=== PATIENT | male | born 1980 | race Hispanic/Latino ===

== ENCOUNTER 2017-12-28 11:43 | Emergency (ER) | payer OTHER ==
[2017-12-28 11:56] VITALS: RESP 18
[2017-12-28] MEDS ORDERED: Sodium Chloride 0.9% 1,000 ML IV STA (12:28)
--- NOTE | 2017-12-28 12:33 | C.PDOC ---
History Of Present Illness 37 y/o male presents to ED with c/o headache, vomiting and diarrhea for 1 week. Patient states he was seen at [facility] 2 days ago and given Imodium with no relief. Patient admits to drinking ETOH "a lot this week" and reports travel to [place] 1 month ago. Patient denies fever, chills, cough, blood in stool, blood in emesis or any other complaints at this time. Time Seen by Provider: 12/28/17 12:12 Chief Complaint (Nursing): GI Problem History Per: Patient History/Exam Limitations: no limitations Onset/Duration Of Symptoms: Days Current Symptoms Are (Timing): Still Present Past Medical History Reviewed: Historical Data, Nursing Documentation, Vital Signs Vital Signs: Last Vital Signs Temp 98.6 F 12/28/17 11:51 Pulse 95 H 12/28/17 11:51 Resp 18 12/28/17 11:51 BP 131/91 H 12/28/17 11:51 Pulse Ox 96 12/28/17 11:51 - Medical History PMH: No Chronic Diseases Surgical History: No Surg Hx Family History: States: No Known Family Hx - Social History Hx Alcohol Use: Yes Hx Substance Use: No - Immunization History Hx Tetanus Toxoid Vaccination: No Hx Influenza Vaccination: Yes Hx Pneumococcal Vaccination: Yes Review Of Systems Except As Marked, All Systems Reviewed And Found Negative. Constitutional: Negative for: Fever, Chills Gastrointestinal: Positive for: Vomiting, Abdominal Pain, Diarrhea Neurological: Positive for: Headache Physical Exam - Physical Exam Additional Physical Exam Comments: Constitutional: No acute distress. Head: Normocephalic. Atraumatic. Eyes: PERRL. ENT: Moist mucous membranes. Neck: Supple. Cardiovascular: Regular rate. Radial pulse 2+ bilaterally. Chest: No tenderness. Respiratory: Clear to auscultation bilaterally. GI: Soft. Nontender. Nondistended. Back: No CVA tenderness. Musculoskeletal: No tenderness or swelling of extremities. Skin: No rash. Neurologic: Alert, no focal deficit. ED Course And Treatment - Laboratory Results Result Diagrams: 12/28/17 12:47 12/28/17 12:47 O2 Sat by Pulse Oximetry: 96 (RA) Pulse Ox Interpretation: Normal Medical Decision Making Medical Decision Making: CXR: IMPRESSION: No active pulmonary disease. Influenza negative. Labs unremarkable. IVF, Zofran administered in ED. Discharged home, f/u PMD, instructed to return to ED for worsening pain, fever, vomiting, dyspnea, or any other problem. Disposition - Disposition Referrals: [facility] [Outside] Disposition: HOME/ ROUTINE Disposition Time: 13:33 Condition: STABLE Prescriptions: Ondansetron ODT [Zofran ODT] 4 mg PO Q8 #12 odt Instructions: Viral Gastroenteritis, Adult (DC) Forms: [employer] (Nicaraguan) - Clinical Impression Clinical Impression: Vomiting and diarrhea - Scribe Statement The provider has reviewed the documentation as recorded by the Scribendy Jim All medical record entries made by the Druibendy were at my direction and personally dictated by me. I have reviewed the chart and agree that the record accurately reflects my personal performance of the history, physical exam, medical decision making, and the department course for this patient. I have also personally directed, reviewed, and agree with the discharge instructions and disposition.
[2017-12-28 12:59] LABS: BASO # 0.1 K/uL (0.0-0.2); BASO % 0.6 % (0.0-2.0); EOS # 0.1 K/uL (0.0-0.7); EOS % 1.2 % (0.0-4.0); HEMOGLOBIN 15.7 g/dL (12.0-18.0); LYMPH # 1.8 K/uL (1.0-4.3); LYMPH % 17.1 % (20.0-40.0); MEAN CELL VOLUME 92.2 fL (80.0-94.0); MEAN CORPUSCULAR HEMOGLOBIN 31.7 pg (27.0-31.0); MEAN CORPUSCULAR HGB CONC 34.4 g/dL (33.0-37.0); MONO # 0.8 K/uL (0.0-0.8); MONO % 7.4 % (0.0-10.0); NEUT # 7.6 K/uL (1.8-7.0); NEUT % 73.7 % (50.0-75.0); RBC 4.94 Mil/uL (4.40-5.90); RED CELL DISTRIBUTION WIDTH 13.9 % (11.5-14.5); WHITE BLOOD COUNT 10.4 K/uL (4.8-10.8)
[2017-12-28 13:03] LABS: SQUAMOUS EPITHIAL < 1 /hpf (0-5); URINE BILIRUBIN NEGATIVE (NEGATIVE); URINE BLOOD NEGATIVE (NEGATIVE); URINE CLARITY Clear (Clear); URINE COLOR Yellow (YELLOW); URINE GLUCOSE (UA) NORMAL (Normal); URINE LEUKOCYTE ESTERASE NEG Leu/uL (Negative); URINE PROTEIN NEGATIVE (NEGATIVE); URINE UROBILINOGEN NORMAL mg/dL (0.2-1.0)
[2017-12-28 13:11] LABS: ALB/GLOB RATIO 1.5 (1.0-2.1); ALBUMIN 4.3 g/dL (3.5-5.0); ALT/SGPT 43 U/L (21-72); AST/SGOT 52 U/L (17-59); BLOOD UREA NITROGEN 11 mg/dL (9-20); CALCIUM 9.1 mg/dl (8.6-10.4); GFR NON-AFRICAN AMERICAN > 60; LIPASE 49 U/L (23-300)
--- NOTE | 2017-12-28 13:19 | RAD ---
HISTORY: Fever COMPARISON: No prior. TECHNIQUE: Chest PA and lateral FINDINGS: LINES AND TUBES: None. LUNG AND PLEURA: The lungs are well inflated and clear. No pleural effusion or pneumothorax. HEART AND MEDIASTINUM: The heart is not enlarged. No aortic atherosclerotic calcification present. The hilar and mediastinal contours are within normal limits. SKELETAL STRUCTURES: The bony structures are within normal limits for the patient's age. VISUALIZED UPPER ABDOMEN: Normal. OTHER FINDINGS: None. IMPRESSION: No active pulmonary disease.
[2017-12-28 13:57] VITALS: BP 136/75; PULSE 78; TEMP 98; O2SAT 98
== END 2017-12-28 13:57 | disposition home or self-care (01) ==
LOC: C.ER 11:43
DX: R11.10 Vomiting, unspecified (principal); R19.7 Diarrhea, unspecified
CPT/HCPCS: 71046; 80053; 80320; 81001; 83690; 85025; 87804; 96374; 99284; J2405; J7030

== ENCOUNTER 2018-01-25 21:28 | Emergency (ER) | payer OTHER ==
--- NOTE | 2018-01-25 22:09 | C.PDOC ---
History Of Present Illness 37 year old male presents to the ED requesting detox for alcohol abuse. Patient has history of chronic alcoholism, patient stated he has been drinking for the past few week. Patient also c/o right elbow pain s/p falling in the snow yesterday. Patient denies SI/HI, hallucinations, CP, SOB, LOC, weakness, numbness. Chief Complaint (Nursing): Psychiatric Evaluation History Per: Patient History/Exam Limitations: intoxication Onset/Duration Of Symptoms: Hrs Current Symptoms Are (Timing): Still Present Suicide/Self Injury Attempted (Context): None Modifying Factor(s): Alcohol Associated Symptoms: denies: Depression, Suicidal Thoughts, Suicidal Plan Recent travel outside of the [place]: No Additional History Per: Patient Past Medical History Reviewed: Historical Data, Nursing Documentation, Vital Signs Vital Signs: Last Vital Signs Temp 97.9 F 01/25/18 21:38 Pulse 66 01/25/18 21:38 Resp 18 01/25/18 21:38 BP 142/81 01/25/18 21:38 Pulse Ox 99 01/25/18 21:38 - Medical History PMH: No Chronic Diseases Surgical History: No Surg Hx Family History: States: Unknown Family Hx - Social History Hx Alcohol Use: Yes Hx Substance Use: No - Immunization History Hx Tetanus Toxoid Vaccination: No Hx Influenza Vaccination: Yes ([id number]) Hx Pneumococcal Vaccination: Yes Review Of Systems Constitutional: Negative for: Fever, Chills Cardiovascular: Negative for: Chest Pain Respiratory: Negative for: Cough, Shortness of Breath Gastrointestinal: Negative for: Nausea, Vomiting, Abdominal Pain Musculoskeletal: Positive for: Arm Pain Neurological: Negative for: Weakness, Numbness Psych: Negative for: Depression, Suicidal ideation Physical Exam - Physical Exam Appears: Non-toxic, No Acute Distress, Other (AOB) Skin: Normal Color, Warm, Dry Head: Atraumatic, Normacephalic Eye(s): bilateral: Normal Inspection Neck: Normal ROM, Supple Chest: Symmetrical Cardiovascular: Rhythm Regular Respiratory: Normal Breath Sounds, No Rales, No Rhonchi, No Wheezing Gastrointestinal/Abdominal: Soft, No Tenderness, No Guarding, No Rebound Extremity: Normal ROM, Tenderness (right proximal forearm ), Capillary Refill (< 2 seconds), Swelling (soft tissue ecchymosis right proximal forearm) Neurological/Psych: Oriented x3, Normal Speech, Normal Cognition, Normal Motor, Normal Sensation Gait: Steady ED Course And Treatment O2 Sat by Pulse Oximetry: 99 (ON RA) Pulse Ox Interpretation: Normal - Other Rad Right elbow/ forearm X-Ray: Interpreted by Me, Viewed By Me Interpretation: no fracture Medical Decision Making Medical Decision Making: Plan: * Right elbow X-Ray * Right forearm X-Ray Disposition Counseled Patient/Family Regarding: Diagnosis - Disposition Referrals: Non [facility] Provider, [Primary Care Provider] - Disposition: HOME/ ROUTINE Disposition Time: 22:51 Condition: STABLE Prescriptions: chlordiazePOXIDE [Chlordiazepoxide HCl] 10 mg PO Q6 #12 cap Ibuprofen [Motrin] 1 tab PO TID PRN #30 tab PRN Reason: Pain Instructions: Contusion (DC), Alcohol Abuse and Alcoholism (DC) Forms: [employer] (French) - POA Present On Arrival: None - Clinical Impression Clinical Impression: Contusion, Alcoholism /alcohol abuse - Scribe Statement The provider has reviewed the documentation as recorded by the Scribe Deshawn Vincent All medical record entries made by the Scribe were at my direction and personally dictated by me. I have reviewed the chart and agree that the record accurately reflects my personal performance of the history, physical exam, med ica decision making, and the department course for this patient. I have also personally directed, reviewed, and agree with the discharge instructions and disposition.
[2018-01-25 23:25] VITALS: BP 136/88; PULSE 68; RESP 20; TEMP 98; O2SAT 97
--- NOTE | 2018-01-26 07:21 | RAD ---
Right forearm two views HISTORY: Injury. COMPARISON: None available. Findings: On the frontal view, there is a punctate radiopaque density seen projecting over the mid elbow joint space, of uncertain clinical etiology. No evidence of gross acute displaced fracture or dislocation. Remainder of the elbow and wrist joints appear preserved. Impression: On the frontal view, there is a punctate radiopaque density seen projecting over the mid elbow joint space, of uncertain clinical etiology. No evidence of gross acute displaced fracture or dislocation. If pain persists, consider MRI.
--- NOTE | 2018-01-26 07:25 | RAD ---
Right elbow three views HISTORY: Injury. COMPARISON: None available. Findings: No significant elbow joint effusion. On the frontal view, there is mild bony protuberance at the radial aspect of the radial head, nonspecific. On the oblique view, there is a questionable punctate radiopaque density seen at the level of the coronoid process which may represent a tiny avulsion injury of the coronoid process. This is nonspecific. This may correspond to the punctate radiopaque density seen at the mid elbow joint space on the frontal view of the forearm films. Impression: No significant elbow joint effusion. On the frontal view, there is mild bony protuberance at the radial aspect of the radial head, nonspecific. On the oblique view, there is a questionable punctate radiopaque density seen at the level of the coronoid process which may represent a tiny avulsion injury of the coronoid process. This is nonspecific. This may correspond to the punctate radiopaque density seen at the mid elbow joint space on the frontal view of the forearm films. If pain persists, consider correlation with MRI.
== END 2018-01-25 23:23 | disposition home or self-care (01) ==
LOC: C.ER 21:28 → SUPCPDRO 21:28 → C.ER 23:23
DX: S50.11XA Contusion of right forearm, initial encounter (principal); W00.0XXA Fall on same level due to ice and snow, initial encounter; Y92.9 Unspecified place or not applicable; F10.20 Alcohol dependence, uncomplicated